=== PATIENT | female | born 1935 | race Caucasian/White ===

== ENCOUNTER 2021-03-03 12:21 | Outpatient (CLI) | payer MEDICARE, SELFPAY ==
--- NOTE | ~2021-03-03 | XR_ITS ---
EXAMINATION: XR lumbar spine 2-3V DATE: 03/03/2021 12:55 INDICATION: Joint disorder. TECHNIQUE: 3 views of lumbar spine were obtained. COMPARISON: None. FINDINGS: There is 4 mm retrolisthesis of L1 on L2, L2 on L3, and L3 on L4, 5 mm anterolisthesis of L 4 on L5, and 7 mm anterolisthesis of L5 on S1. There is mild chronic anterior wedging of L1 vertebral body. There is severely decreased disc height at L1-L2, L4-L5, and L5-S1 with endplate remodeling. T here is moderately decreased disc height at L2-L3 and mildly decreased disc height at L3-L4. 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 IMPRESSION: 1. Severe lumbar spondylosis. Reviewed, dictated and finalized at location A.
--- NOTE | ~2021-03-03 | XR_ITS ---
EXAMINATION: XR hip RT min 2V DATE: 03/03/2021 12:55 INDICATION: Joint disorder. TECHNIQUE: 3 views of right hip were obtained. COMPARISON: None. FINDINGS: Bone alignment is normal. No fracture. There is mild right hip osteoarthritis and severe ri ght sacroiliac joint osteoarthritis. IMPRESSION: 1. Polyarticular osteoarthritis. Reviewed, dictated and finalized at location A.
== END 2021-03-03 12:22 | disposition home or self-care (01) ==
DX: R26.81 Unsteadiness on feet (principal); M47.896 Other spondylosis, lumbar region; M16.11 Unilateral primary osteoarthritis, right hip
CPT/HCPCS: 72100; 73502